=== PATIENT | male | born 1990 | race African-American/Black ===

== ENCOUNTER 2022-05-06 06:29 | Emergency (ER) | payer SELFPAY ==
--- NOTE | 2022-05-06 06:33 | ED.GENADULT ---
HPI - General Adult General Stated complaint: CP Time Seen by Provider: 05/06/22 06:33 Source: patient, EMS and police Mode of arrival: ambulatory Limitations: no limitations History of Present Illness HPI narrative: Patient comes to the emergency room via EMS accompanied by police department [place] [facility] [place] Seems that patient was complaining of chest pain, Patient arrived to the emergency room, patient is alert and oriented x3, patient is very clear that he is refusing any care and he does not want to be touched. Review of Systems Review of Systems: Patient refused to talk about review of systems [facility] Past Medical History Source: unable to obtain (Refused to give any history) Physical Exam ED Const Other: Patient refused medical exam or to be touched Appearance: Alert. Oriented X3. No acute distress. Eyes: Grossly normal ENT: Grossly normal Neck: Grossly normal CVS: Refuse Respiratory: Speaking and yelling in full sentences Abdomen: Refused exam Skin: Normal skin color Extremities: Grossly normal Neuro: Oriented X 3. CN 2 through 12 grossly intact Psych: In handcuffs, uncooperative, refused physical exam Course Course Course Narrative: Patient is alert and oriented x3, refused all care. Patient came in for chest pain, leaving against medical advise in police custody Discharge Plan Discharge Clinical Impression: Chest pain Patient Disposition: Left Against Medical Advice Instructions: Chest Pain (ED) Additional Instructions: Your refused any care . You are leaving against medical advice. Please follow-up with your primary care physician tomorrow. If you have any worsening or new symptoms, please return to the emergency room or call 911
== END 2022-05-06 07:19 | disposition left against medical advice (07) ==
PROVIDERS: Emergency Provider Emergency Medicine
DX: R07.9 Chest pain, unspecified (principal)